=== PATIENT | male | born 1955 | race Caucasian/White ===

== ENCOUNTER → 2016-04-19 | Day surgery (SDC) | payer OTHER | END | disposition home or self-care (01) | LOC: SDCH 07:35 | DX: Z12.11 Encounter for screening for malignant neoplasm of colon (principal); D12.6 Benign neoplasm of colon, unspecified; K44.9 Diaphragmatic hernia without obstruction or gangrene; K57.30 Diverticulosis of large intestine without perforation or abscess without bleeding; I10 Essential (primary) hypertension; G25.81 Restless legs syndrome; G43.909 Migraine, unspecified, not intractable, without status migrainosus; N40.0 Benign prostatic hyperplasia without lower urinary tract symptoms; F32.9 Major depressive disorder, single episode, unspecified; F17.210 Nicotine dependence, cigarettes, uncomplicated; Z79.899 Other long term (current) drug therapy; Z98.41 Cataract extraction status, right eye; Z98.42 Cataract extraction status, left eye | CPT/HCPCS: J2704 ==